=== PATIENT | male | born 1975 | race Caucasian/White ===

== ENCOUNTER 2016-11-04 11:27 | Emergency (ER) | payer MEDICARE, MEDICAID ==
[2016-11-04 11:51] VITALS: BP 104/69
--- NOTE | 2016-11-04 12:28 | UC ---
Throat Pain/Nasal Jaspreet HPI - HPI Summary HPI Summary: Patient has had sinus pressure, more on left than right, cough, PND and sore thoat for the past 2 weeks. - History of Current Complaint Chief Complaint: UCGeneralIllness Stated Complaint: COUGH,SORE THROAT Time Seen by Provider: 11/04/16 11:52 Hx Obtained From: Patient Onset/Duration: Sudden Onset, Lasting Weeks Severity: Moderate - Allergies/Home Medications Allergies/Adverse Reactions: Allergies Allergy/AdvReac Type Severity Reaction Status Date / Time No Known Allergies Allergy Verified 11/04/16 11:51 PMH/Surg Hx/FS Hx/Imm Hx - Surgical History Surgical History: Yes Surgery Procedure, Year, and Place: appendectomy 1996, back surgery June 2009 - Social History Alcohol Use: None Substance Use Type: None, Prescribed Smoking Status (MU): Heavy Every Day Tobacco Smoker Length of Time of Smoking/Using Tobacco: 1/2 ppd Review of Systems Constitutional: Fatigue Skin: Negative Eyes: Negative ENT: Sore Throat, Ear Ache, Nasal Discharge, Sinus Congestion Respiratory: Cough Cardiovascular: Negative Gastrointestinal: Negative Genitourinary: Negative Motor: Negative Neurovascular: Negative Musculoskeletal: Negative Neurological: Headache Psychological: Negative All Other Systems Reviewed And Are Negative: Yes Physical Exam Triage Information Reviewed: Yes Appearance: Well-Nourished, Ill-Appearing, Pain Distress Vital Signs: Initial Vital Signs Temp 98.0 F 11/04/16 11:49 Pulse 74 11/04/16 11:49 Resp 16 11/04/16 11:49 BP 104/69 11/04/16 11:49 Pulse Ox 95 11/04/16 11:49 Vital Signs Reviewed: Yes Eye Exam: Normal Eyes: Positive: Conjunctiva Clear ENT: Positive: Pharyngeal erythema, Nasal drainage, TM red Dental Exam: Normal Neck exam: Normal Neck: Positive: Supple, Nontender, No Lymphadenopathy Respiratory Exam: Normal Respiratory: Positive: Chest non-tender, Lungs clear, Normal breath sounds Cardiovascular Exam: Normal Cardiovascular: Positive: RRR, No Murmur, Pulses Normal Abdominal Exam: Normal Abdomen Description: Positive: Nontender, No Organomegaly, Soft Bowel Sounds: Positive: Present Musculoskeletal Exam: Normal Musculoskeletal: Positive: Strength Intact, ROM Intact, No Edema Neurological Exam: Normal Neurological: Positive: Alert, Muscle Tone Normal Psychological Exam: Normal Skin Exam: Normal Throat Pain/Nasal Course/Dx - Course Course Of Treatment: hx obtained, exam performed ,meds reviewed, treated for sinusitis - Differential Dx/Diagnosis Differential Diagnosis/HQI/PQRI: Influenza, Laryngitis, Otitis Media, Pharyngitis, Sinusitis, URI Provider Diagnoses: sinusitis Discharge - Discharge Plan Condition: Stable Disposition: HOME Prescriptions: Azithromyxin ANETA (NF) [Z-Aneta (Zithromax) 250 mg tabs #6] 2 tab PO .TODAY, THEN 1 DAILY #6 tab predniSONE TAB* [Deltasone TAB*] 40 mg PO DAILY #10 tab Patient Education Materials: Sinusitis (ED) Referrals: Non Staff,Doctor [Primary Care Provider] - Additional Instructions: 1. take the medication as prescribed. 2. increase your fluid intake and get some rest 3. Ibuprofen and tylneol for pain and [place].
== END 2016-11-04 12:29 | disposition home or self-care (01) ==
LOC: UCCORT 11:27
DX: J32.9 Chronic sinusitis, unspecified (principal)
CPT/HCPCS: 99202; G0463

== ENCOUNTER 2017-12-23 12:05 | Emergency (ER) | payer MEDICARE, MEDICAID ==
[2017-12-23 13:29] VITALS: BP 109/78
--- NOTE | 2017-12-23 13:37 | UC ---
Skin Complaint HPI - HPI Summary HPI Summary: Patient is 42 year old , without any significant past medical history who present today with left wrist lesions for past 1 month. Mainly located on the left dorsal aspect of the wrist and had noticed another one on the right cubital aspect of the right elbow. He also reports a small wart on the penis but that has been there for a long time It is itchy to the point that he scratches and damages the skin, denies pain. Skin on palms starting to peel. Washing hands a lot. Cleaning a lot of medical equipment. 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 He cleans after every transport so there is a lot of handwashing involved. 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 S Denies any fever, chills, cough chest pain or shortness of breath . No diaphoresis. Denies any abdominal pain , nausea or vomiting , diarrhea or constipation. He has not tried over the counter medication without much relief. - History of Current Complaint Chief Complaint: UCSkin Time Seen by Provider: 12/23/17 13:33 Stated Complaint: SKIN COMPLAINT Hx Obtained From: Patient Onset/Duration: Gradual Onset Skin Exposure Onset/Duration: Weeks Ago Onset Severity: Mild Current Severity: Mild Pain Intensity: 0 - Allergy/Home Medications Allergies/Adverse Reactions: Allergies Allergy/AdvReac Type Severity Reaction Status Date / Time No Known Allergies Allergy Verified 12/23/17 13:27 Review of Systems Constitutional: Negative Skin: Rash - On the left dorsal wrist Eyes: Negative ENT: Ear Ache, Other - Here is stiffness and decreased hearing Respiratory: Negative Cardiovascular: Negative Gastrointestinal: Negative Genitourinary: Negative Motor: Negative Neurovascular: Negative Musculoskeletal: Negative Neurological: Negative Psychological: Negative Is Patient Immunocompromised?: No All Other Systems Reviewed And Are Negative: Yes PMH/Surg Hx/FS Hx/Imm Hx Previously Healthy: Yes Other Endocrine History: negative Other Cardiovascular History: negative Other Respiratory History: negative Other GI/ History: negative Neurological History: Other - Sciatica Other Neurological History: negative Other Psychological History: negative Other Cancer History: negative - Surgical History Surgical History: Yes Surgery Procedure, Year, and Place: 2010 MICRODISCECTOMY L5-S1 - Social History Alcohol Use: None Substance Use Type: None Smoking Status (MU): Heavy Every Day Tobacco Smoker Type: Cigarettes Length of Time of Smoking/Using Tobacco: 1/2 ppd Physical Exam - Summary Physical Exam Summary: Physical Exam: Const: Appears well. No signs of apparent distress present. Alert and oriented x 3. Musculo: Walks with a normal gait. Head/Face: Atraumatic, normocephalic on inspection. Eyes: EOMI and PERRLA in both eyes. Conjunctivae clear. No discharge noted ENT: Left ear: No foreign body identified, external auditory canal without any inflammation or discharge.. Left tympanic membrane appears dull and red with fluid noted. Respiratory: Respirations are unlabored. Lungs clear to auscultation bilaterally, no wheezing , rhonchi or rales noted . CVS: Regular rate and Rhythm, S1S2 normal , no murmurs identified. Extremities: Peripheral circulation is grossly normal. Pulses 2+ Abdomen : Soft non tender , nondistended , Bowel sounds present . No guarding , rebound tenderness or rigidity noted. Skin: 2-5 mm skin-colored/pink papular lesions on the dorsal aspect of the left wrist. Nonblanching, nontender to palpate. Similar lesion also noted on the right elbow. . Of the skin/discoloration noted on the palms of the hands and the knuckles . Small day wart is noted on the penis Neuro: Cranial nerves II to XII intact, motor and sensory intact. DTR Intact bilaterally. Mood is normal. Affect is normal. Triage Information Reviewed: Yes Vital Signs: Initial Vital Signs Temp 98.5 F 12/23/17 13:22 Pulse 81 12/23/17 13:22 Resp 16 12/23/17 13:22 BP 109/78 12/23/17 13:22 Pulse Ox 97 12/23/17 13:22 Vital Signs Reviewed: Yes Course/Dx - Course Course Of Treatment: During the visit today, we discussed the findings and further plan. I will prescribe the medication to the pharmacy . Patient expressed understanding . - Diagnoses Provider Diagnoses: Common wart(verruca vulgaris). Genital wart. Otitis media left ear Discharge - Sign-Out/Discharge Documenting (check all that apply): Patient Departure All imaging exams completed and their final reports reviewed: No Studies - Discharge Plan Condition: Stable Disposition: HOME Prescriptions: Amoxicillin PO (*) [Amoxicillin 500 MG CAP*] 500 mg PO TID 10 Days #30 cap Imiquimod 5 % EX SEE INSTRUCTIONS #1 cre Patient Education Materials: Ear Infection (ED), Common Wart (ED), Cryotherapy Wart Removal (DC) Referrals: Jose Carlos Bernard MD [Medical Doctor] - 2 Days Pat Hayes MD [Primary Care Provider] - 3 Days Additional Instructions: Please start taking the medication as prescribed to the pharmacy . You can also use use over the counter salicylic acid topically Follow up with your primary care doctor in 2 days. Please follow up with dermatology for the consult and treatment . Return to Urgent care / ER if symptoms get worse. - Billing Disposition and Condition Condition: STABLE Disposition: Home
== END 2017-12-23 14:22 | disposition home or self-care (01) ==
LOC: UCCORT 12:05
DX: B07.8 Other viral warts (principal); A63.0 Anogenital (venereal) warts; H66.92 Otitis media, unspecified, left ear; F17.210 Nicotine dependence, cigarettes, uncomplicated
CPT/HCPCS: 36415; 86703; 99212; G0463